=== PATIENT | female | born 1955 | race Caucasian/White ===

== ENCOUNTER → 2017-09-29 | Outpatient (CLI) | payer OTHER ==
--- NOTE | 2017-09-29 13:45 | US ---
EXAMINATION TYPE: US thyroid st tissue head/neck DATE OF EXAM: 09/29/2017 COMPARISON: 2010 CLINICAL HISTORY: E04.9 NONTOXIC GOITER. GLAND SIZE: Right Lobe: 5.0x1.8x1.8 cm Overall Parenchyma: heterogenous Left Lobe: 5.1x2.7x2.3 cm Overall Parenchyma: heterogeneous Isthmus Thickness: 0.2 cm NODULES RIGHT: # of nodules measured on right: 1 1. 0.7 X 1.0 x 0.4 cm echogenic solid nodule at the lower pole with well-defined margins; . This n odule is wider than tall and shows intranodular vascularity. Prior size: 0.6 x 0.4 x 0.4 cm LEFT: # of nodules measured on left: 3 1. 2.3 X 3.1 x 1.6 cm echogenic solid nodule at the lower pole with well-defined margins; . This n odule is wider than tall and shows intranodular vascularity. Prior size: 2.6 x 1.4 x 1.8 cm 2. 1.3 X 1.3 x 1.3 cm echogenic nodule at the medial pole with well-defined margins; . This nodule is wider than tall and shows intranodular vascularity. Prior size: 0.7 x 1.3 x 1.2 cm 3. 1.8 X 1.5 x 1.3 cm echogenic solid nodule at the mid pole with well-defined margins; . This nodu le is wider than tall and shows intranodular vascularity. Prior size: 1.4 x 1.4 x 0.7 cm ISTHMUS: # of nodules measured in the isthmus: 1 Bilateral neck scanned, no evidence of lymphadenopathy. Heterogeneous normal-sized thyroid with scattered nodules redemonstrated. No new nodules are evident. IMPRESSION: Overall stable findings as detailed above.
--- NOTE | 2017-09-29 14:17 | BD ---
EXAMINATION TYPE: Axial Bone Density DATE OF EXAM: 09/29/2017 COMPARISON: DEXA bone scan November 03, 2009 CLINICAL HISTORY: Postmenopausal female Height: 5 foot 8 Weight: 228 FRAX RISK QUESTIONS: Alcohol (3 or more units per day): no Family History (Parent hip fracture): no Glucocorticoids (More than 3mos): no (Ex: prednisone, prednisolone, methylprednisolone, dexamethasone, and hydrocortisone). History of Fracture in Adulthood: yes Secondary Osteoporosis: 1. Type 1 Diabetes: yes 2. Hyperthyroidism: no 3. Menopause before 45: yes 4. Malnutrition: no 5. Chronic liver disease: no Rheumatoid Arthritis: no Current Tobacco Use: yes RISK FACTORS HISTORY OF: Family History of Osteoporosis: yes Diet low in dairy products/other sources of calcium: no Postmenopausal woman: age 45 Take estrogen and/or progesterone medications: no Lost more than 2 inches in height since high school: no Frequent falls: yes MEDICATIONS: diabetic meds, Additional History: EXAM MEASUREMENTS: Bone mineral densitometry was performed using the [employer]. Bone mineral density as measured about the Lumbar spine is: ----- L1-L4(G/cm2): 1.246 T Score Values are as follows: ----- L2: 0.5 ----- L3: 0.7 ----- L4: -0.6 ----- L1-L4: 0.6 Bone mineral density has: increased 13.0 % since study of: 11.03.2009 Bone mineral density about the R hip (g/cm2): 0.863 Bone mineral density about the L hip (g/cm2): 0.794 T Score values are as follows: -----R Neck: -1.3 -----L Neck: -1.8 -----R Total: -1.0 -----L Total: -1.4 Bone mineral density has: decreased -3.8 % since study of: 11.03.2009 IMPRESSION: Osteopenia (T Score between -2.5 and -1) remains present femoral neck level in both hips. There is slightly increased risk of fracture and the patient may be considered for treatment. Re-Screen 2-5 years. NOTE: T-SCORE=SD OF THE YOUNG ADULT MEAN.
== END | disposition home or self-care (01) ==
LOC: RADMAMWWP 11:55
PROVIDERS: ATTEND Family Medicine
DX: M85.852 Other specified disorders of bone density and structure, left thigh (principal); M85.851 Other specified disorders of bone density and structure, right thigh; E04.2 Nontoxic multinodular goiter
CPT/HCPCS: 76536; 77080

== ENCOUNTER → 2017-10-10 | Outpatient (CLI) | payer OTHER ==
--- NOTE | 2017-10-10 16:12 | US ---
EXAMINATION TYPE: US renals and bladder DATE OF EXAM: 10/10/2017 COMPARISON: NONE CLINICAL HISTORY: 62-year-old female N18.9 chronic kidney disease. Chronic kidney disease FINDINGS: EXAM MEASUREMENTS: Right Kidney: 10.6 x 4.4 x 4.3 cm without hydronephrosis. There is a 1.2 cm lower pole cyst. Left Kidney: 11.6 x 6.1 x 4.4 cm without hydronephrosis. Senior Linux Administrator notes:Technical limitations due to large amount of overlying bowel content Bladder: appears wnl Bilateral Jets seen: yes IMPRESSION: 1. No hydronephrosis. 2. A 1.2 cm lower pole cyst on the right.
== END | disposition home or self-care (01) ==
LOC: RADUSWWP 13:34
PROVIDERS: ATTEND Internal Medicine
DX: N28.1 Cyst of kidney, acquired (principal); N18.9 Chronic kidney disease, unspecified
CPT/HCPCS: 76770

== ENCOUNTER → 2019-08-02 | Outpatient (CLI) | payer OTHER ==
--- NOTE | 2019-08-02 13:23 | US ---
EXAMINATION TYPE: US pelvic complete DATE OF EXAM: 08/02/2019 COMPARISON: CT CLINICAL HISTORY: N92.0 Excessive and frequent menstruation with reg. Pt states vaginal spotting x fe w months/ pt states LMP age 45 TECHNIQUE: Transabdominal (TA). Transabdominal sonographic images of the pelvis were acquired. Date of LMP: age 45 EXAM MEASUREMENTS: Uterus: 8.1 x 4.1 x 4.7 cm Endometrial Stripe: 1.2 cm Right Ovary: 2.6 x 2.0 x 2.3 cm Left Ovary: 2.9 x 1.6 x 2.4 cm 1. Uterus: Anteverted Appeared wnl 2. Endometrium: Thickened for postmenopausal female. 3. Right Ovary: Appeared wnl 4. Left Ovary: Appeared wnl 5. Bilateral Adnexa: wnl 6. Posterior cul-de-sac: wnl IMPRESSION: Endometrial thickening and abnormal for a posterior portal female measuring 1.2 cm. Furth er evaluation with sonohysterogram or direct visualization is recommended.
== END | disposition home or self-care (01) ==
LOC: RADUSWWP 12:40
PROVIDERS: ATTEND Family Medicine
DX: R93.89 Abnormal findings on diagnostic imaging of other specified body structures (principal)
CPT/HCPCS: 76856

== ENCOUNTER 2021-10-22 23:35 | Inpatient (IN) | payer OTHER ==
--- NOTE | 2021-10-23 01:25 | CT ---
EXAMINATION TYPE: CT brain wo con for TPA DATE OF EXAM: 10/23/2021 COMPARISON: None HISTORY: right sided weakness CT DLP: 1137.3 mGycm Automated exposure control for dose reduction was used. Ventricles have normal size. There is no mass effect or midline shift. No sign of intracranial hemorr genie. There is a extra-axial calcified mass at the right frontal convexity measuring 2.3 cm and consi stent with a large meningioma. The skull base is intact. There is normal aeration of the mastoid sinu ses. IMPRESSION: Large right frontal calcified meningioma. No acute intracranial abnormality.
--- NOTE | 2021-10-23 01:32 | XR ---
EXAMINATION TYPE: XR chest 2V DATE OF EXAM: 10/23/2021 COMPARISON: NONE HISTORY: Weakness and pain TECHNIQUE: 2 views FINDINGS: Heart is normal. Lungs are clear of infiltrate. No heart failure. There are no hilar masses . Bony thorax is intact. There are chest leads. IMPRESSION: Normal chest.
[2021-10-23 01:34] LABS: Albumin 4.5 g/dL (3.5-5.0); Calcium 9.7 mg/dL (8.4-10.2); Potassium 3.6 mmol/L (3.5-5.1); Total Bilirubin 0.4 mg/dL (0.2-1.3); Total Protein 8.1 g/dL (6.3-8.2)
[2021-10-23] MEDS ORDERED: DEXTROSE 50% SYRINGE 50 ML IVP STA (01:42)
[2021-10-23 01:50] LABS: INR 0.9 (<1.2); Prothrombin Time 10.4 sec (9.0-12.0)
[2021-10-23 01:52] LABS: Basophils # (A) 0.1 k/uL (0-0.2); Basophils % (A) 1 %; Eosinophils # (A) 0.2 k/uL (0-0.7); Eosinophils % (A) 2 %; HCT 47.4 % (34.0-46.0); HGB 15.5 gm/dL (11.4-16.0); Lymphocytes # (A) 3.1 k/uL (1.0-4.8); Lymphocytes % (A) 23 %; MCH 27.8 pg (25.0-35.0); MCHC 32.8 g/dL (31.0-37.0); Monocytes # (A) 0.7 k/uL (0-1.0); Monocytes % (A) 5 %; Neutrophils # (A) 9.2 k/uL (1.3-7.7); Neutrophils % (A) 68 %; Platelet Count 801 k/uL (150-450); RBC 5.57 m/uL (3.80-5.40); RDW 13.2 % (11.5-15.5); WBC 13.5 k/uL (3.8-10.6)
[2021-10-23 02:02] LABS: Glucose,Whole Blood 54 mg/dL (75-99)
[2021-10-23 02:39] LABS: Glucose,Whole Blood 67 mg/dL (75-99)
[2021-10-23 03:39] LABS: Appearance,Urine Clear (Clear); Bacteria,Urine Rare /hpf; Bilirubin,Urine Negative (Negative); Blood,Urine Negative (Negative); Color,Urine Colorless; Glucose,Urine (UA) Negative (Negative); Ketones,Urine Negative (Negative); Leukocyte Esterase,Urine Trace (Negative); Nitrite,Urine Negative (Negative); Protein,Urine Negative (Negative); RBC,Urine <1 /hpf (0-5); Specific Gravity,Urine 1.006 (1.001-1.035); Squamous Epithelial Cell,Urine 2 /hpf (0-4); Urobilinogen,Urine <2.0 mg/dL (<2.0); WBC,Urine 1 /hpf (0-5)
--- NOTE | 2021-10-23 03:55 | ED ---
Neuro HPI - General Chief Complaint: Neuro Symptoms/Deficit Stated Complaint: Stroke-like Symptoms Time Seen by Provider: 10/23/21 00:08 Source: patient Mode of arrival: ambulatory Limitations: no limitations - History of Present Illness Is the patient presenting with stroke symptoms?: Yes Last Known Well Date: 10/20/21 Last Known Well Time: 08:00 -: days(s) Initial Comments: Please note this is a redictation of this chart the original appears to have been lost in the system. This patient is a 66-year-old woman who presents to have evaluation of right- sided weakness that has been going on now into the third day. The patient states that it feels like her right side is weak and tingly. She feels as if the fingers on her right side are also swollen. It had come on gradually to 3 days ago and has persisted so she presents to have evaluation now. Patient denies head injury or headache. She has not noted change in vision. She states she does feel her speech is not right. She states she is sometimes having problems coming up with the word that she is looking for. Location: speech, right arm, right leg History of same: No Place: home Severity: moderate Quality: weak, tingling, constant Improves With: none Worsens With: none On Anticoagulants: No Context: sudden onset Associated Symptoms: denies other symptoms Treatments Prior to Arrival: none - Related Data Home Medications: Home Medications Medication Instructions Recorded Confirmed Cyclobenzaprine [Flexeril] 10 mg PO BID 10/23/21 10/23/21 Ergocalciferol [Vitamin D2 (1250 1,250 mcg PO TH 10/23/21 10/23/21 Mcg = 69941 Iu)] Furosemide [Lasix] 40 mg PO DAILY 10/23/21 10/23/21 HYDROcodone/APAP 10-325MG [Waterfall 1 tab PO BID 10/23/21 10/23/21 10-325] Insulin Aspart [NovoLOG Flexpen] See Protocol SQ AC-TID 10/23/21 10/23/21 Insulin Glargine,Hum.rec.anlog 88 unit SQ W/SUPPER 10/23/21 10/23/21 [Lantus Solostar Pen] Loratadine [Claritin] 10 mg PO HS 10/23/21 10/23/21 Montelukast [Singulair] 10 mg PO HS 10/23/21 10/23/21 Omeprazole 40 mg PO HS 10/23/21 10/23/21 Ondansetron [Zofran] 4 mg PO Q8H PRN 10/23/21 10/23/21 QUEtiapine [SEROquel] 100 mg PO HS 10/23/21 10/23/21 Rosuvastatin [Crestor] 10 mg PO HS 10/23/21 10/23/21 Triamterene-Hctz 37.5-25Mg 1 cap PO DAILY 10/23/21 10/23/21 [Dyazide 37.5-25 Capsule] amLODIPine [Norvasc] 5 mg PO HS 10/23/21 10/23/21 atenoloL [Tenormin] 25 mg PO HS 10/23/21 10/23/21 dilTIAZem HCL 60 mg PO HS 10/23/21 10/23/21 hydrALAZINE HCL [Apresoline] 25 mg PO HS 10/23/21 10/23/21 hydrALAZINE HCL [Apresoline] 50 mg PO DAILY 10/23/21 10/23/21 hydrOXYzine pamoate [hydrOXYzine 100 mg PO DAILY 10/23/21 10/23/21 PAMOATE] Allergies/Adverse Reactions: Allergies Allergy/AdvReac Type Severity Reaction Status Date / Time No Known Allergies Allergy Verified 10/23/21 06:59 Review of Systems ROS Statement: Those systems with pertinent positive or pertinent negative responses have been documented in the HPI. ROS Other: All systems not noted in ROS Statement are negative. Constitutional: Denies: fever, chills, weakness Eyes: Denies: eye pain, vision change ENT: Denies: ear pain, hearing loss Respiratory: Denies: cough, dyspnea Cardiovascular: Denies: chest pain, palpitations, orthopnea, syncope Gastrointestinal: Denies: abdominal pain, vomiting, diarrhea Genitourinary: Denies: dysuria, hematuria Musculoskeletal: Denies: back pain Skin: Denies: rash Neurological: Reports: as per HPI, weakness, numbness. Denies: headache Hematological/Lymphatic: Denies: easy bleeding General Exam Limitations: no limitations General appearance: alert, in no apparent distress Head exam: Present: atraumatic, normocephalic Eye exam: Present: normal appearance, PERRL, EOMI. Absent: scleral icterus, conjunctival injection ENT exam: Present: mucous membranes dry Neck exam: Present: normal inspection Respiratory exam: Present: normal lung sounds bilaterally. Absent: respiratory distress, wheezes, rales, rhonchi, stridor Cardiovascular Exam: Present: regular rate, normal rhythm, normal heart sounds. Absent: systolic murmur, diastolic murmur, rubs, gallop GI/Abdominal exam: Present: soft. Absent: distended, tenderness, guarding, rebound, rigid, mass Extremities exam: Present: normal inspection, full ROM, normal capillary refill. Absent: pedal edema, calf tenderness Back exam: Present: normal inspection Neurological exam: Present: alert, oriented X3, CN II-XII intact, other. Absent: motor sensory deficit Expanded Patient oriented to: Present: person, place, time Speech: Present: anomia Cranial nerves: EOM's Intact: Normal, Tongue Deviation: Normal, Facial Sensation: Normal Cerebellar function: Finger to Nose: Normal Sensory exam: Upper Extremity Light Touch: Normal, Lower Extremity Light Touch: Normal Motor strength exam: RUE: 5, LUE: 5, RLE: 4, LLE: 5 Eye Response: (4) open spontaneously Motor Response: (6) obeys commands Verbal Response: (5) oriented Skin exam: Present: warm, dry, intact, normal color. Absent: rash Stroke MDM - Lab Data Result diagrams: 10/23/21 01:04 10/23/21 01:04 Lab Results 10/23/21 10/23/21 10/23/21 Range/Units 01:04 01:04 01:04 WBC 13.5 H (3.8-10.6) k/uL RBC 5.57 H (3.80-5.40) m/uL Hgb 15.5 (11.4-16.0) gm/dL Hct 47.4 H (34.0-46.0) % MCV 85.0 (80.0-100.0) fL MCH 27.8 (25.0-35.0) pg MCHC 32.8 (31.0-37.0) g/dL RDW 13.2 (11.5-15.5) % Plt Count 801 H (150-450) k/uL MPV 7.0 Neutrophils % 68 % Lymphocytes % 23 % Monocytes % 5 % Eosinophils % 2 % Basophils % 1 % Neutrophils # 9.2 H (1.3-7.7) k/uL Lymphocytes # 3.1 (1.0-4.8) k/uL Monocytes # 0.7 (0-1.0) k/uL Eosinophils # 0.2 (0-0.7) k/uL Basophils # 0.1 (0-0.2) k/uL PT 10.4 (9.0-12.0) sec INR 0.9 (<1.2) APTT 27.0 (22.0-30.0) sec D-Dimer 0.33 (<0.60) mg/L FEU Sodium 140 (137-145) mmol/L Potassium 3.6 (3.5-5.1) mmol/L Chloride 103 (98-107) mmol/L Carbon Dioxide 28 (22-30) mmol/L Anion Gap 9 mmol/L BUN 21 H (7-17) mg/dL Creatinine 1.63 H (0.52-1.04) mg/dL Est GFR (CKD-EPI)AfAm 38 (>60 ml/min/1.73 sqM) Est GFR (CKD-EPI)NonAf 33 (>60 ml/min/1.73 sqM) Glucose 44 L* (74-99) mg/dL POC Glucose (mg/dL) (75-99) mg/dL POC Glu General [employer] Yard ID Calcium 9.7 (8.4-10.2) mg/dL Total Bilirubin 0.4 (0.2-1.3) mg/dL AST 23 (14-36) U/L ALT 15 (4-34) U/L Alkaline Phosphatase 133 H (38-126) U/L Troponin I (0.000-0.034) ng/mL Total Protein 8.1 (6.3-8.2) g/dL Albumin 4.5 (3.5-5.0) g/dL Urine Color Urine Appearance (Clear) Urine pH (5.0-8.0) Ur Specific [place] (1.001-1.035) Urine Protein (Negative) Urine Glucose (UA) (Negative) Urine Ketones (Negative) Urine Blood (Negative) Urine Nitrite (Negative) Urine Bilirubin (Negative) Urine Urobilinogen (<2.0) mg/dL Ur Leukocyte Esterase (Negative) Urine RBC (0-5) /hpf Urine WBC (0-5) /hpf Ur Squamous Epith Cells (0-4) /hpf Urine Bacteria (None) /hpf 10/23/21 10/23/21 10/23/21 Range/Units 01:04 02:00 02:25 WBC (3.8-10.6) k/uL RBC (3.80-5.40) m/uL Hgb (11.4-16.0) gm/dL Hct (34.0-46.0) % MCV (80.0-100.0) fL MCH (25.0-35.0) pg MCHC (31.0-37.0) g/dL RDW (11.5-15.5) % Plt Count (150-450) k/uL MPV Neutrophils % % Lymphocytes % % Monocytes % % Eosinophils % % Basophils % % Neutrophils # (1.3-7.7) k/uL Lymphocytes # (1.0-4.8) k/uL Monocytes # (0-1.0) k/uL Eosinophils # (0-0.7) k/uL Basophils # (0-0.2) k/uL PT (9.0-12.0) sec INR (<1.2) APTT (22.0-30.0) sec D-Dimer (<0.60) mg/L FEU Sodium (137-145) mmol/L Potassium (3.5-5.1) mmol/L Chloride (98-107) mmol/L Carbon Dioxide (22-30) mmol/L Anion Gap mmol/L BUN (7-17) mg/dL Creatinine (0.52-1.04) mg/dL Est GFR (CKD-EPI)AfAm (>60 ml/min/1.73 sqM) Est GFR (CKD-EPI)NonAf (>60 ml/min/1.73 sqM) Glucose (74-99) mg/dL POC Glucose (mg/dL) 54 L (75-99) mg/dL POC Glu General [employer] ID [place] Calcium (8.4-10.2) mg/dL Total Bilirubin (0.2-1.3) mg/dL AST (14-36) U/L ALT (4-34) U/L Alkaline Phosphatase (38-126) U/L Troponin I <0.012 (0.000-0.034) ng/mL Total Protein (6.3-8.2) g/dL Albumin (3.5-5.0) g/dL Urine Color Colorless Urine Appearance Clear (Clear) Urine pH 6.0 (5.0-8.0) Ur Specific [place] 1.006 (1.001-1.035) Urine Protein Negative (Negative) Urine Glucose (UA) Negative (Negative) Urine Ketones Negative (Negative) Urine Blood Negative (Negative) Urine Nitrite Negative (Negative) Urine Bilirubin Negative (Negative) Urine Urobilinogen <2.0 (<2.0) mg/dL Ur Leukocyte Esterase Trace H (Negative) Urine RBC <1 (0-5) /hpf Urine WBC 1 (0-5) /hpf Ur Squamous Epith Cells 2 (0-4) /hpf Urine Bacteria Rare H (None) /hpf 10/23/21 Range/Units 02:37 WBC (3.8-10.6) k/uL RBC (3.80-5.40) m/uL Hgb (11.4-16.0) gm/dL Hct (34.0-46.0) % MCV (80.0-100.0) fL MCH (25.0-35.0) pg MCHC (31.0-37.0) g/dL RDW (11.5-15.5) % Plt Count (150-450) k/uL MPV Neutrophils % % Lymphocytes % % Monocytes % % Eosinophils % % Basophils % % Neutrophils # (1.3-7.7) k/uL Lymphocytes # (1.0-4.8) k/uL Monocytes # (0-1.0) k/uL Eosinophils # (0-0.7) k/uL Basophils # (0-0.2) k/uL PT (9.0-12.0) sec INR (<1.2) APTT (22.0-30.0) sec D-Dimer (<0.60) mg/L FEU Sodium (137-145) mmol/L Potassium (3.5-5.1) mmol/L Chloride (98-107) mmol/L Carbon Dioxide (22-30) mmol/L Anion Gap mmol/L BUN (7-17) mg/dL Creatinine (0.52-1.04) mg/dL Est GFR (CKD-EPI)AfAm (>60 ml/min/1.73 sqM) Est GFR (CKD-EPI)NonAf (>60 ml/min/1.73 sqM) Glucose (74-99) mg/dL POC Glucose (mg/dL) 67 L (75-99) mg/dL POC Glu General [employer] Yard ID [place], Andres Calcium (8.4-10.2) mg/dL Total Bilirubin (0.2-1.3) mg/dL AST (14-36) U/L ALT (4-34) U/L Alkaline Phosphatase (38-126) U/L Troponin I (0.000-0.034) ng/mL Total Protein (6.3-8.2) g/dL Albumin (3.5-5.0) g/dL Urine Color Urine Appearance (Clear) Urine pH (5.0-8.0) Ur Specific [place] (1.001-1.035) Urine Protein (Negative) Urine Glucose (UA) (Negative) Urine Ketones (Negative) Urine Blood (Negative) Urine Nitrite (Negative) Urine Bilirubin (Negative) Urine Urobilinogen (<2.0) mg/dL Ur Leukocyte Esterase (Negative) Urine RBC (0-5) /hpf Urine WBC (0-5) /hpf Ur Squamous Epith Cells (0-4) /hpf Urine Bacteria (None) /hpf - Medical Decision Making This patient is 66-year-old woman going on 3 days now of right sided weakness and numbness as well as some difficulty with word finding and her speech. On the exam she does have strength throughout all 4 extremities however there is noticeable difference the right arm has some very subtle weakness compared with the left. The right leg is more noticeably weak than the left. The patient is outside of the window for TPA administration The initial workup does not reveal evidence of acute stroke, but in discussing the findings with patient I feel is important she have neurologic consultation. She does agree to stay for this. Past Medical History Past Medical History: Diabetes Mellitus, Hypertension Additional Past Medical History / Comment(s): kidney disease History of Any Multi-Drug Resistant Organisms: None Reported Past Surgical History: Appendectomy, Cholecystectomy, Orthopedic Surgery, Tubal Ligation Additional Past Surgical History / Comment(s): eyes, Past Psychological History: No Psychological Hx Reported Smoking Status: Current every day smoker Past Alcohol Use History: None Reported Past Drug Use History: None Reported - Past Family History Mother Additional Family Medical History / Comment(s): Ger's Father Additional Family Medical History / Comment(s): Still alive, cancer (prostate) Course Vital Signs 10/22/21 10/23/21 10/23/21 23:38 00:58 02:25 Temperature 97.5 F L Pulse Rate 66 63 77 Pulse Rate [ Integration Lead ] Respiratory 18 16 16 Rate Blood Pressure 143/69 145/63 133/78 Blood Pressure [Left Arm] O2 Sat by Pulse 100 98 100 Oximetry 10/23/21 10/23/21 10/23/21 03:52 05:13 11:00 Temperature Pulse Rate 65 71 75 Pulse Rate [ Integration Lead ] Respiratory 18 18 18 Rate Blood Pressure 133/70 136/78 140/82 Blood Pressure [Left Arm] O2 Sat by Pulse 100 99 98 Oximetry 10/23/21 12:00 Temperature Pulse Rate Pulse Rate [ 79 Integration Lead ] Respiratory 20 Rate Blood Pressure Blood Pressure 170/87 [Left Arm] O2 Sat by Pulse 100 Oximetry Disposition Clinical Impression: CVA (cerebral vascular accident) Disposition: Left Against Medical Advice Condition: Fair Is patient prescribed a controlled substance at d/c from ED?: No
[2021-10-23 05:29] LABS: Glucose,Whole Blood 154 mg/dL (75-99)
[2021-10-23] MEDS ORDERED: NICOTINE 14MG/24HR PATCH TRANSDERM STA (06:47)
[2021-10-23] MEDS ORDERED: NICOTINE 21MG/24HR PATCH TRANSDERM STA (07:20)
[2021-10-23 08:45] LABS: Glucose,Whole Blood 121 mg/dL (75-99)
--- NOTE | 2021-10-23 08:48 | P.HPIM ---
History of Present Illness This is a pleasant 66 years old female with past medical history of hypertension, diabetes mellitus and cigarette smoker. Patient states she has chronic kidney disease as well Presents because of right-sided weakness and numbness for the last 2-3 days. Patient states that she has recently diagnosed with cough at about 2-3 weeks ago with cough sore throat and diarrhea which is improved now. However for the last 2-3 she started complaining of from numbness in her feet and tongue and that site of the loop associated with weakness more of the lower extremities. She notices her hand also week and she's been dropping.. Associated with little headache but no blurred vision. Her told her that her sound looks of. She denies chest pain or dyspnea. She has little coughing. She has no diarrhea actually she is constipated area no abdominal pain or dysuria. No urgency. She is hemodynamically stable. Labs showing mild leukocytosis at 13.5. INR is 0.9, d-dimer is -0.3. Creatinine elevated at 1.6. Also she was hyperglycemic on admission at 44, currently last blood glucose was 154 Urine analysis is negative for infection. CT of the brain, large right frontal calcified meningioma. No acute intracranial abnormality Chest x-ray: Normal chest Emergency room patient was started on aspirin 325 mg She states at home she takes 88 units of Lantus and insulin sliding scale for example yesterday she took 28 units with this morning meal at health 14 units with the dining time. She has to with 2 meals and she was also 10 units for the snack in the evening. Last hemoglobin was 5+% as per patient She smokes about less than 2 packs per day and she was counseled to quit. She agrees to the nicotine patch. She denies alcohol or illicit drugs. Review of Systems CONSTITUTIONAL: No fever, no malaise, no fatigue. HEENT: No recent visual problems or hearing problems. Denied any sore throat. CARDIOVASCULAR: No orthopnea, PND, no palpitations, no syncope. PULMONARY: No shortness of breath, no cough, no hemoptysis. GASTROINTESTINAL: No diarrhea, no nausea, no vomiting, no abdominal pain. Normoactive bowel sounds. -NEUROLOGICAL: As above HEMATOLOGICAL: Denies any bleeding or petechiae. GENITOURINARY: Denies any burning micturition, frequency, or urgency. MUSCULOSKELETAL/RHEUMATOLOGICAL: Denies any joint pain, swelling, or any muscle pain. ENDOCRINE: Denies any polyuria or polydipsia. Past Medical History Past Medical History: Diabetes Mellitus, Hypertension Additional Past Medical History / Comment(s): kidney disease History of Any Multi-Drug Resistant Organisms: None Reported Past Surgical History: Appendectomy, Cholecystectomy, Orthopedic Surgery, Tubal Ligation Additional Past Surgical History / Comment(s): eyes, Past Psychological History: No Psychological Hx Reported Smoking Status: Current every day smoker Past Alcohol Use History: None Reported Past Drug Use History: None Reported Medications and Allergies Home Medications Medication Instructions Recorded Confirmed Type Cyclobenzaprine [Flexeril] 10 mg PO BID 10/23/21 10/23/21 History Ergocalciferol [Vitamin D2 (1250 1,250 mcg PO TH 10/23/21 10/23/21 History Mcg = 84989 Iu)] Furosemide [Lasix] 40 mg PO DAILY 10/23/21 10/23/21 History HYDROcodone/APAP 10-325MG [[place] 1 tab PO BID 10/23/21 10/23/21 History 10-325] Insulin Aspart [NovoLOG Flexpen] See Protocol SQ AC-TID 10/23/21 10/23/21 History Insulin Glargine,Hum.rec.anlog 88 unit SQ W/SUPPER 10/23/21 10/23/21 History [Lantus Solostar Pen] Loratadine [Claritin] 10 mg PO HS 10/23/21 10/23/21 History Montelukast [Singulair] 10 mg PO HS 10/23/21 10/23/21 History Omeprazole 40 mg PO HS 10/23/21 10/23/21 History Ondansetron [Zofran] 4 mg PO Q8H PRN 10/23/21 10/23/21 History QUEtiapine [SEROquel] 100 mg PO HS 10/23/21 10/23/21 History Rosuvastatin [Crestor] 10 mg PO HS 10/23/21 10/23/21 History Triamterene-Hctz 37.5-25Mg 1 cap PO DAILY 10/23/21 10/23/21 History [Dyazide 37.5-25 Capsule] amLODIPine [Norvasc] 5 mg PO HS 10/23/21 10/23/21 History atenoloL [Tenormin] 25 mg PO HS 10/23/21 10/23/21 History dilTIAZem HCL 60 mg PO HS 10/23/21 10/23/21 History hydrALAZINE HCL [Apresoline] 25 mg PO HS 10/23/21 10/23/21 History hydrALAZINE HCL [Apresoline] 50 mg PO DAILY 10/23/21 10/23/21 History hydrOXYzine pamoate [hydrOXYzine 100 mg PO DAILY 10/23/21 10/23/21 History PAMOATE] Allergies Allergy/AdvReac Type Severity Reaction Status Date / Time No Known Allergies Allergy Verified 10/23/21 06:59 Physical Exam Vitals: Vital Signs Temp Pulse Resp BP Pulse Ox 10/23/21 05:13 71 18 136/78 99 10/23/21 03:52 65 18 133/70 100 10/23/21 02:25 77 16 133/78 100 10/23/21 00:58 63 16 145/63 98 10/22/21 23:38 97.5 F L 66 18 143/69 100 Intake and Output 10/22/21 10/23/21 10/23/21 22:59 06:59 14:59 Other: Weight 108.862 kg -GENERAL: The patient is alert and oriented x3, not in any acute distress. Obese HEENT: Pupils are round and equally reacting to light. EOMI. No scleral icterus. No conjunctival pallor. Normocephalic, atraumatic. No pharyngeal erythema. No thyromegaly. CARDIOVASCULAR: S1 and S2 present. No murmurs, rubs, or gallops. PULMONARY: Chest is clear to auscultation, no wheezing or crackles. ABDOMEN: Soft, nontender, nondistended, normoactive bowel sounds. No palpable organomegaly. MUSCULOSKELETAL: No joint swelling or deformity. EXTREMITIES: No cyanosis, clubbing, or pedal edema. -NEUROLOGICAL: Cranial nerves are grossly intact. Some numbness in the right lip and tip of the tongue. Right sided weakness, lower> upper extremity. Patient she has hard time lifting her leg over the bed. But she can bend her knee. No foot drop. Meningeal signs are absent SKIN: No rashes. No petechiae Results CBC & Chem 7: 10/23/21 01:04 06/03/22 01:04 Labs: Abnormal Lab Results - Last 24 Hours (Table) 10/23/21 10/23/21 10/23/21 Range/Units 01:04 01:04 02:00 WBC 13.5 H (3.8-10.6) k/uL RBC 5.57 H (3.80-5.40) m/uL Hct 47.4 H (34.0-46.0) % Plt Count 801 H (150-450) k/uL Neutrophils # 9.2 H (1.3-7.7) k/uL BUN 21 H (7-17) mg/dL Creatinine 1.63 H (0.52-1.04) mg/dL Glucose 44 L* (74-99) mg/dL POC Glucose (mg/dL) 54 L (75-99) mg/dL Alkaline Phosphatase 133 H (38-126) U/L Ur Leukocyte Esterase (Negative) Urine Bacteria (None) /hpf 10/23/21 10/23/21 10/23/21 Range/Units 02:25 02:37 05:27 WBC (3.8-10.6) k/uL RBC (3.80-5.40) m/uL Hct (34.0-46.0) % Plt Count (150-450) k/uL Neutrophils # (1.3-7.7) k/uL BUN (7-17) mg/dL Creatinine (0.52-1.04) mg/dL Glucose (74-99) mg/dL POC Glucose (mg/dL) 67 L 154 H (75-99) mg/dL Alkaline Phosphatase (38-126) U/L Ur Leukocyte Esterase Trace H (Negative) Urine Bacteria Rare H (None) /hpf Assessment and Plan Assessment: Acute stroke with right hemiparesis large right frontal calcified meningioma Diabetes mellitus with hyperglycemia on admission Chronic kidney disease stage III Hypertension Nicotine dependence Obesity with BMI of 36.5 Plan: This is a pleasant 66 years old female who presents with stroke and right hemiparesis. Also hypoglycemia. Neuro check Continue with aspirin Neurology consult Start patient on D5 normal saline Hold insulin and continue with insulin sliding scale. check hemoglobin A1c Urine drug screen Resume atenolol, Norvasc, triamterene-hydrochlorothiazide. while Hold Cardizem and hydralazine, Lasix. Keep monitor and blood pressure Labs and medication were reviewed.. Continue same treatment. Continue with symptomatic treatment. Resume home medication. Monitor lytes and vitals. DVT and GI prophylaxis. Further recommendations depends on the clinical course of the patient DVT prophylaxis: Subcutaneous heparin GI Prophylaxis: Pepcid PT/OT: Pending Swallow evaluation Prognosis is guarded
[2021-10-23] MEDS ORDERED: TRIAMTERENE-HCTZ 37.5-25MG 1 EACH CAP PO SCH (09:00)
[2021-10-23] MEDS ORDERED: FAMOTIDINE 20 MG TAB PO SCH (09:00)
[2021-10-23] MEDS: DEXTROSE 5%-0.9% NACL 1,000 ML IV SCH (09:04)
--- NOTE | 2021-10-23 11:07 | P.CNNES ---
History of Present Illness Consult date: 10/23/21 Requesting physician: Alex Bates Reason for Consult: Right sided weakness, possible stroke History of Present Illness: Patient is a 66-year-old right-handed female came to the hospital yesterday at 11:38 PM for right-sided weakness, numbness and difficulty with walking. Patient states that she has history of diabetes type 1 for 25 years, with diabetic neuropathy. She usually walks with a walker for the last 10 years. About 3 days ago she noticed that she has much more difficulty with walking, as her right foot would drag, would not like to move forward and would turn in. Along with that she noticed tingling of the right hand with numbness, tightness in the fingers. Also noticed numbness of the tip of the tongue, and right half of the upper and lower lips. She also had developed slurred speech, as usually she speaks very crisp. She also felt extremely tired. Patient felt that she will get better, and symptoms would go away, therefore did not seek medical attention. Patient noticed difficulty getting around with imbalance. She felt that she would fall. As all her symptoms continued to get worse, patient's brought her to the hospital. Patient's vital signs on arrival blood pressure 143/69, pulse is [address] head showed large right frontal calcified meningioma measuring 23 mm. No acute process. I personally reviewed CT head, agree with the findings. Chest x-ray normal. Blood test shows WBC 13.5 hemoglobin 15.5, platelets 801. PT/PTT normal, electrolytes are normal, BUN 21 creatinine 1.63. Hepatic panel is normal. Troponin negative. UA negative. Patient's last hemoglobin A1c 9.7 on 02/14/2017. Patient states she has history of diabetes type 1 for last 25 years. She has stage III kidney disease. Patient smokes 2 packs per day for last 20 years. Prior to that she has smoked 1 pack per day for another 30 years previously. She still smokes. Denies any alcohol use. Patient does not take any antiplatelet medication at home. Her did give her aspirin 81 mg last night at 11:15 PM. Patient has macular degeneration with Tracts. Home medications include insulin, Crestor 10 mg Seroquel 100 g at bedtime hydrocodone 10 twice a day Flexeril 10 mg twice a day, besides other blood pressure medications as per chart. Patient states that she was exposed to Covid by her son about a month ago. Subsequently she lost taste sensation. She felt very sick last week with feeling hot and cold sensation. She also had diarrhea, all symptoms of Covid- 19, however she never got tested for it. Patient states that she has lost 15 pounds since she has been suffering with flulike symptoms. No previous history of strokes or TIA. Review of Systems All 14 point of review of system reviewed, remarkable except as mentioned in HPI. Past Medical History Past Medical History: Diabetes Mellitus, Hypertension Additional Past Medical History / Comment(s): kidney disease History of Any Multi-Drug Resistant Organisms: None Reported Past Surgical History: Appendectomy, Cholecystectomy, Orthopedic Surgery, Tubal Ligation Additional Past Surgical History / Comment(s): eyes, Past Psychological History: No Psychological Hx Reported Smoking Status: Current every day smoker Past Alcohol Use History: None Reported Past Drug Use History: None Reported Medications and Allergies Home Medications Medication Instructions Recorded Confirmed Type Cyclobenzaprine [Flexeril] 10 mg PO BID 10/23/21 10/23/21 History Ergocalciferol [Vitamin D2 (1250 1,250 mcg PO TH 10/23/21 10/23/21 History Mcg = 04163 Iu)] Furosemide [Lasix] 40 mg PO DAILY 10/23/21 10/23/21 History HYDROcodone/APAP 10-325MG [[place] 1 tab PO BID 10/23/21 10/23/21 History 10-325] Insulin Aspart [NovoLOG Flexpen] See Protocol SQ AC-TID 10/23/21 10/23/21 History Insulin Glargine,Hum.rec.anlog 88 unit SQ W/SUPPER 10/23/21 10/23/21 History [Lantus Solostar Pen] Loratadine [Claritin] 10 mg PO HS 10/23/21 10/23/21 History Montelukast [Singulair] 10 mg PO HS 10/23/21 10/23/21 History Omeprazole 40 mg PO HS 10/23/21 10/23/21 History Ondansetron [Zofran] 4 mg PO Q8H PRN 10/23/21 10/23/21 History QUEtiapine [SEROquel] 100 mg PO HS 10/23/21 10/23/21 History Rosuvastatin [Crestor] 10 mg PO HS 10/23/21 10/23/21 History Triamterene-Hctz 37.5-25Mg 1 cap PO DAILY 10/23/21 10/23/21 History [Dyazide 37.5-25 Capsule] amLODIPine [Norvasc] 5 mg PO HS 10/23/21 10/23/21 History atenoloL [Tenormin] 25 mg PO HS 10/23/21 10/23/21 History dilTIAZem HCL 60 mg PO HS 10/23/21 10/23/21 History hydrALAZINE HCL [Apresoline] 25 mg PO HS 10/23/21 10/23/21 History hydrALAZINE HCL [Apresoline] 50 mg PO DAILY 10/23/21 10/23/21 History hydrOXYzine pamoate [hydrOXYzine 100 mg PO DAILY 10/23/21 10/23/21 History PAMOATE] Allergies Allergy/AdvReac Type Severity Reaction Status Date / Time No Known Allergies Allergy Verified 10/23/21 06:59 Physical Examination - Vital Signs Vital Signs: Vital Signs Temp Pulse Resp BP Pulse Ox 10/23/21 05:13 71 18 136/78 99 10/23/21 03:52 65 18 133/70 100 10/23/21 02:25 77 16 133/78 100 10/23/21 00:58 63 16 145/63 98 10/22/21 23:38 97.5 F L 66 18 143/69 100 Intake and Output 10/22/21 10/23/21 10/23/21 22:59 06:59 14:59 Other: Weight 108.862 kg Patient is an elderly female, in no acute distress. Patient is alert awake oriented to time place and person. Speech is mildly dysarthric and language functions are normal. Patient can name and repeat very well. Attention, concentration and fund of knowledge is adequate. On cranial examination, pupils are equal, round and reacting to light, visual crooks are full on confrontation, extraocular muscles are intact with no nystagmus. Face is symmetric, tongue protrudes to the midline. Palatal elevation and sensation normal, hearing and shoulder shrug normal, facial sensation normal. Shoulder shrug normal. On muscle strength testing, there is right-sided pronation, in both arms gets tired, but the right arm more easily gets tired. Patient's muscle strength is normal in arms and legs distally and proximally. Deep tendon reflexes are diminished and plantars downgoing bilaterally. Sensory to touch is equal in the arms and legs, with no neglect on double simultaneous stimulation. She has some decreased in the right median nerve distribution. Cerebellar function showed no moderate to severe ataxia for [id number], and [id number] testing only on the right side. No ataxia on the left side. Tone and bulk of muscles normal. Gait not checked On general examination, there is no carotid bruit or murmur, S1-S2 audible. Abdomen is soft nontender. Bowel sounds present, no organomegaly. Chest is clear. Peripheral pulses are present. No edema. Results - Laboratory Findings CBC and BMP: 10/23/21 01:04 10/23/21 01:04 Abnormal Lab Findings: Abnormal Labs 10/23/21 10/23/21 10/23/21 01:04 01:04 02:00 WBC 13.5 H RBC 5.57 H Hct 47.4 H Plt Count 801 H Neutrophils # 9.2 H BUN 21 H Creatinine 1.63 H Glucose 44 L* POC Glucose (mg/dL) 54 L Alkaline Phosphatase 133 H Ur Leukocyte Esterase Urine Bacteria 10/23/21 10/23/21 10/23/21 02:25 02:37 05:27 WBC RBC Hct Plt Count Neutrophils # BUN Creatinine Glucose POC Glucose (mg/dL) 67 L 154 H Alkaline Phosphatase Ur Leukocyte Esterase Trace H Urine Bacteria Rare H 10/23/21 08:43 WBC RBC Hct Plt Count Neutrophils # BUN Creatinine Glucose POC Glucose (mg/dL) 121 H Alkaline Phosphatase Ur Leukocyte Esterase Urine Bacteria Assessment and Plan Assessment: * Probable acute to subacute ischemic stroke, with right-sided numbness and right hemiataxia. * Cerebral meningioma right frontal region. Likely asymptomatic, as all symptoms are on the ipsilateral side. * Diabetes * Hypertension * Hyperlipidemia * Chronic, heavy tobacco use * Stage III renal disease. Plan: * Patient will undergo workup for CVA. * MRI of the brain with and without contrast * MRA brain rule out intracranial stenosis. * Carotid Doppler to rule out stenosis * 2-D echo with bubble study * Start dual antiplatelet medication. After 21 days probably would be able to switch to a single agent. * Strongly recommend complete tobacco cessation. * Telemetry monitoring * Permissive hypertension for 24-48 hours. * DVT prophylaxis: Heparin subcu 5000 unit every 12 hours. * PT OT, speech therapy * Neurology will follow. Thank you for the consult. Time with Patient: Greater than 30
[2021-10-23] MEDS: ASPIRIN 325 MG TAB PO SCH (11:23)
[2021-10-23] MEDS: INSULIN ASPART (NovoLOG) 100 UNIT/ML VIAL SQ SCH ×3 (12:24→21:10)
[2021-10-23 12:26] LABS: Glucose,Whole Blood 179 mg/dL (75-99)
[2021-10-23] MEDS: CLOPIDOGREL 75 MG TAB PO SCH (12:28)
--- NOTE | 2021-10-23 12:52 | CA ---
Transthoracic Echo Report Name: Mamta Tripp Age: 66 Gender: F : 1955 Exam Date: 10/23/2021 11:21 Exam Location: [facility] Ht (in): 68 Wt (lb): 250 Ordering Physician: Frank Otero MD Attending/Referring Phys: Materials Planner Khushbu Blas RDCS Procedure CPT: Indications: CVA Cardiac Hx: Technical Quality: Technically difficult study Contrast 1: Lumason Total Dose (mL): 4 Contrast 2: Total Dose (mL): MEASUREMENTS (Male / Female) Normal Values 2D ECHO LV Diastolic Diameter PLAX 4.2 cm 4.2 - 5.9 / 3.9 - 5.3 cm LV Systolic Diameter PLAX 3.1 cm IVS Diastolic Thickness 1.4 cm 0.6 - 1.0 / 0.6 - 0.9 cm LVPW Diastolic Thickness 1.1 cm 0.6 - 1.0 / 0.6 - 0.9 cm LV Relative Wall Thickness 0.6 RV Internal Dim ED PLAX 2.4 cm LA Volume 55.8 cm??? 18 - 58 / 22 - 52 cm??? M-MODE Aortic Root Diameter MM 3.3 cm LA Systolic Diameter MM 4.3 cm LA Ao Ratio MM 1.3 AV Cusp Separation MM 1.7 cm DOPPLER AV Peak Velocity 118.0 cm/s AV Peak Gradient 5.6 mmHg LVOT Peak Velocity 105.0 cm/s LVOT Peak Gradient 4.4 mmHg MV Area PHT 3.0 cm??? Mitral E Point Velocity 95.5 cm/s Mitral A Point Velocity 127.1 cm/s Mitral E to A Ratio 0.8 MV Deceleration Time 252.3 ms MV E' Velocity 5.3 cm/s Mitral E to MV E' Ratio 18.0 FINDINGS Left Ventricle Moderately increased left ventricular wall thickness. Normal left ventricular systolic function with no obvious regional wall motion abnormalities. Left ventricular ejection fraction is estimated at 55- 60 %. Right Ventricle Normal right ventricular size and function. Right Atrium Right atrium not well visualized. Left Atrium Mildly increased left atrial volume. No evidence for an atrial septal defect. Could not perform agitated saline study due to test being technically difficult. Mitral Valve Mild mitral regurgitation. Aortic Valve No aortic valve stenosis or regurgitation. Tricuspid Valve Structurally normal tricuspid valve. No tricuspid stenosis. Trace tricuspid regurgitation. Pulmonic Valve Pulmonic valve not well visualized. Trace pulmonic regurgitation. Pericardium No pericardial effusion. Aorta Normal size aortic root and proximal ascending aorta. CONCLUSIONS Moderate LVH Left ventricular ejection fraction 55-60% Technically difficult study, bubble study not able to be performed. Mild mitral regurgitation Trace tricuspid regurgitation No pericardial effusion Previewed by: Dr. Guillermo Rolle DO (Electronically Signed) Final Date: 23 October 2021 12:51
--- NOTE | 2021-10-23 14:35 | US ---
EXAMINATION TYPE: US carotid duplex BILAT DATE OF EXAM: 10/23/2021 COMPARISON: NONE CLINICAL HISTORY: CVA. CVA EXAM MEASUREMENTS: RIGHT: Peak Systolic Velocity (PSV) cm/sec ----- Right CCA: 71.6 ----- Right ICA: 65.1 ----- Right ECA: 101.6 ICA/CCA ratio: 0.9 RIGHT: End Diastole cm/sec ----- Right CCA: 15.5 ----- Right ICA: 16.8 ----- Right ECA: 14.4 LEFT: Peak Systolic Velocity (PSV) cm/sec ----- Left CCA: 73.6 ----- Left ICA: 68.0 ----- Left ECA: 67.2 ICA/CCA ratio: 0.9 LEFT: End Diastole cm/sec ----- Left CCA: 16.7 ----- Left ICA: 13.1 ----- Left ECA: 8.9 VERTEBRALS (direction of flow): Right Vertebral: Antegrade Left Vertebral: Antegrade Rhythm: Normal Grayscale, color Doppler, spectral Doppler imaging performed the carotid arteries. Waveform analysis does not show significant stenosis of the internal carotid arteries. IMPRESSION: No hemodynamic significant stenosis of the proximal internal carotid arteries by Doppler criteria, an indirect measurement of carotid stenosis Criteria for Assigning % of Stenosis / Diameter reduction (Estimation based on the indirect measurements of the internal carotid artery velocities (ICA PSV). 1. Normal (no stenosis)=ICA PSV < 125 cm/s: ratio < 2.0: ICA EDV<40 cm/s. 2. Less than 50% stenosis=ICA PSV < 125 cm/s: ratio < 2.0: ICA EDV<40 cm/s. 3. 50 to 69% stenosis=ICA PSV of 125 to 230 cm/s: ration 2.0 ? 4.0: ICA EDV 40-100 cm/s. 4. Greater than 70% stenosis to near occlusion= ICA PSV > 230 cm/s: ratio > 4.0: ICA EDV > 100 cm/s. 5. Near occlusion= ICA PSV velocities may be low or undetectable: variable ratio and ICA EDV. 6. Total occlusion=unable to detect flow.
--- NOTE | 2021-10-23 15:19 | MR ---
EXAMINATION TYPE: MR angio head wo con DATE OF EXAM: 10/23/2021 COMPARISON: NONE HISTORY: Acute CVA TECHNIQUE: Time of flight images focusing on the [place] were performed without contrast.. 2-D and 3-D postprocessing imaging is performed on independent workstation and reviewed. FINDINGS: Slightly suboptimal due to motion artifact. Patent bilateral vertebral arteries, right is d ominant. Small caliber vertebrobasilar system. Patent posterior communicating arteries filling the bi lateral P2 segments. Hypoplastic bilateral P1 segments. Patent anterior communicating artery. No significant focal stenosis or aneurysm in the anterior circu lation. IMPRESSION: No significant focal stenosis or aneurysm at the level of the [place].
--- NOTE | 2021-10-23 15:27 | MR ---
EXAMINATION TYPE: MR brain wo/w con DATE OF EXAM: 10/23/2021 COMPARISON: CT brain earlier today. HISTORY: Acute CVA, meningioma TECHNIQUE: Multiplanar, multisequence images of the brain and brainstem is performed without and with IV contras t, utilizing 11 mL intravenous Gadavist . FINDINGS: Diffusion weighted images demonstrate oval 8 x 3 mm area of increased signal on diffusion w eighted images with diminished signal on ADC mapping showing subtle T2 hyperintensity near the juncti on of the posterior limb internal capsule and the anterolateral thalamus consistent with evolving acu te lacunar infarct. Background mild ventricular and sulcal prominence and scattered small foci of T2 hyperintensity throu ghout the white matter are redemonstrated. Midline structures demonstrate normal morphology. The craniocervical junction appears within normal limits. Post contrast images demonstrate no abnormal enhancement. Over the right frontal region ther e is prominent nonenhancing 1.9 x 1.5 cm bony projection axial image 23 with local mass effect, possi ble initially ossified meningioma or other etiology. The dural venous sinuses appear patent. The visu alized sinuses are clear and the globes are intact. IMPRESSION: Evolving acute lacunar infarct near junction of left thalamus and posterior limb internal capsule. A Yellow level critical message alert has been initiated for Malika Means MD via the [employer] Critical Results System on 10/23/2021 3:25 PM. This message alert has been sent to Malika Means MD v ia the preferences provided by the clinician for the receipt of Radiology Critical Findings. Message ID [id number].
[2021-10-23 16:40] LABS: Glucose,Whole Blood 217 mg/dL (75-99)
[2021-10-23] MEDS ORDERED: CLOPIDOGREL 75 MG TAB PO STA (17:01)
[2021-10-23] MEDS ORDERED: PANTOPRAZOLE 40 MG/10 ML VIAL IVP SCH (19:00)
[2021-10-23 20:37] LABS: Glucose,Whole Blood 228 mg/dL (75-99)
[2021-10-23] MEDS: atenoloL 25 MG TAB PO SCH (21:10)
[2021-10-23] MEDS: amLODIPine 5 MG TAB PO SCH (21:10)
[2021-10-23] MEDS: MONTELUKAST 10 MG TAB PO SCH (21:10)
[2021-10-23] MEDS: HEPARIN SODIUM,PORCINE/PF 5,000 UNIT/0.5 ML SYRINGE SQ SCH (21:11)
[2021-10-23] MEDS ORDERED: MELATONIN 5 MG TABLET PO PRN (22:31)
[2021-10-24] MEDS: QUEtiapine 100 MG TAB PO SCH ×2 (03:46→21:04)
[2021-10-24 06:35] LABS: Glucose,Whole Blood 377 mg/dL (75-99)
[2021-10-24] MEDS: INSULIN ASPART (NovoLOG) 100 UNIT/ML VIAL SQ SCH ×4 (07:07→21:05)
[2021-10-24] MEDS: PANTOPRAZOLE 40 MG TABLET PO SCH (07:08)
[2021-10-24] MEDS: DEXTROSE 5%-0.9% NACL 1,000 ML IV SCH (08:48)
[2021-10-24] MEDS ORDERED: FAMOTIDINE 20 MG TAB PO SCH (09:00)
[2021-10-24] MEDS ORDERED: NICOTINE 14MG/24HR PATCH TRANSDERM SCH (09:00)
[2021-10-24] MEDS ORDERED: ASPIRIN 325 MG TAB PO SCH (09:00)
[2021-10-24] MEDS ORDERED: FAMOTIDINE 20 MG/2 ML VIAL IV SCH ×2 (09:00)
[2021-10-24] MEDS: NICOTINE 21MG/24HR PATCH TRANSDERM SCH (09:29)
[2021-10-24] MEDS: ASPIRIN 325 MG TAB PO SCH (09:29)
[2021-10-24] MEDS: HEPARIN SODIUM,PORCINE/PF 5,000 UNIT/0.5 ML SYRINGE SQ SCH ×2 (09:29→21:06)
[2021-10-24] MEDS: CYANOCOBALAMIN 500 MCG TAB PO SCH (09:29)
[2021-10-24] MEDS: FOLIC ACID 1 MG TAB PO SCH (09:29)
[2021-10-24] MEDS ORDERED: INSULIN DETEMIR (LEVEMIR) 100 UNIT/ML SYR SQ SCH (09:30)
[2021-10-24] MEDS: CLOPIDOGREL 75 MG TAB PO SCH (09:30)
[2021-10-24 10:11] LABS: Basophils # (A) 0.1 k/uL (0-0.2); Basophils % (A) 1 %; Eosinophils # (A) 0.2 k/uL (0-0.7); Eosinophils % (A) 2 %; HCT 46.3 % (34.0-46.0); Lymphocytes # (A) 2.4 k/uL (1.0-4.8); Lymphocytes % (A) 20 %; MCH 27.8 pg (25.0-35.0); MCHC 32.3 g/dL (31.0-37.0); Mean Platelet Volume 6.6; Monocytes # (A) 0.5 k/uL (0-1.0); Monocytes % (A) 4 %; Neutrophils # (A) 8.6 k/uL (1.3-7.7); Neutrophils % (A) 71 %; Platelet Count 717 k/uL (150-450); RBC 5.38 m/uL (3.80-5.40); RDW 13.4 % (11.5-15.5); WBC 12.1 k/uL (3.8-10.6)
[2021-10-24 10:22] LABS: African American GFR (CKD) 48 (>60 ml/min/1.73 sqM); Anion Gap 11 mmol/L; Blood Urea Nitrogen 20 mg/dL (7-17); Calcium 9.5 mg/dL (8.4-10.2); Carbon Dioxide 24 mmol/L (22-30); Chloride 98 mmol/L (98-107); Glucose 345 mg/dL (74-99); Magnesium 1.9 mg/dL (1.6-2.3); Non-African American GFR(CKD) 41 (>60 ml/min/1.73 sqM); Potassium 4.2 mmol/L (3.5-5.1); Sodium 133 mmol/L (137-145)
--- NOTE | 2021-10-24 11:17 | P.PN ---
Subjective This is a pleasant 66 years old female with past medical history of hypertension, diabetes mellitus and cigarette smoker. Patient states she has ch ronic kidney disease as well Presents because of right-sided weakness and numbness for the last 2-3 days. Patient states that she has recently diagnosed with cough at about 2-3 weeks ago with cough sore throat and diarrhea which is improved now. However for the last 2-3 she started complaining of from numbness in her feet and tongue and that site of the loop associated with weakness more of the lower extremities. She notices her hand also week and she's been dropping.. Associated with little headache but no blurred vision. Her told her that her sound looks of. She denies chest pain or dyspnea. She has little coughing. She has no diarrhea actually she is constipated area no abdominal pain or dysuria. No urgency. She is hemodynamically stable. Labs showing mild leukocytosis at 13.5. INR is 0.9, d-dimer is -0.3. Creatinine elevated at 1.6. Also she was hyperglycemic on admission at 44, currently last blood glucose was 154 Urine analysis is negative for infection. CT of the brain, large right frontal calcified meningioma. No acute intracranial abnormality Chest x-ray: Normal chest Emergency room patient was started on aspirin 325 mg She states at home she takes 88 units of Lantus and insulin sliding scale for example yesterday she took 28 units with this morning meal at health 14 units with the dining time. She has to with 2 meals and she was also 10 units for the snack in the evening. Last hemoglobin was 5+% as per patient She smokes about less than 2 packs per day and she was counseled to quit. She agrees to the nicotine patch. She denies alcohol or illicit drugs. 10/24/2021 Patient had MRI yesterday showing evolving stroke and lacunar infarct near the left thalamus and posterior limb of internal capsule. Patient received a loading dose of Plavix and now currently she is kept on Plavix and aspirin 325 mg Patient and feels that her speech difficulties improving, her right- sided weakness is starts getting better. No other new complaints. Patient may benefit from rehab upon discharge Keep holding triamterene and hydrochlorothiazide for better control of blood pressure. Blood pressure this morning is 120/78. Also holding her diabetes medication however her sugars start getting high again today therefore we stopped her D5 normal saline and subtotal Levemir 5 units and insulin sliding scale, we'll going to monitor her glucoses closely. Discussed With patient and in they agree Objective - Vital Signs Vital signs: Vital Signs Temp 98.2 F 10/24/21 09:22 Pulse 72 10/24/21 09:22 Resp 20 10/24/21 09:22 BP 120/78 10/24/21 09:22 Pulse Ox 99 10/24/21 09:22 FiO2 Intake & Output 10/23/21 10/24/21 10/24/21 18:59 06:59 18:59 Intake Total 480 Output Total 400 Balance 80 Weight 108.862 kg 122.5 kg Intake: Oral 480 Output: Urine 400 Other: Voiding Method Toilet # Voids 1 2 # Bowel Movements 1 - Exam GENERAL: The patient is alert and oriented x3, not in any acute distress, obese HEENT: Pupils are round and equally reacting to light. EOMI. No scleral icterus. No conjunctival pallor. Normocephalic, atraumatic. No pharyngeal erythema. No thyromegaly. CARDIOVASCULAR: S1 and S2 present. No murmurs, rubs, or gallops. PULMONARY: Chest is clear to auscultation, no wheezing or crackles. ABDOMEN: Soft, nontender, nondistended, normoactive bowel sounds. No palpable organomegaly. MUSCULOSKELETAL: No joint swelling or deformity. EXTREMITIES: No cyanosis, clubbing, or pedal edema. NEUROLOGICAL: Cranial nerves are grossly intact. Right hemiparesis, left more than arm. Improving. No slurred speech. No diplopia or blurred vision. SKIN: No rashes. no petechiae. - Labs CBC & Chem 7: 10/24/21 09:39 10/24/21 09:39 Labs: Abnormal Lab Results - Last 24 Hours (Table) 10/23/21 10/23/21 10/23/21 Range/Units 12:16 16:36 20:23 WBC (3.8-10.6) k/uL Hct (34.0-46.0) % Plt Count (150-450) k/uL Neutrophils # (1.3-7.7) k/uL POC Glucose (mg/dL) 179 H 217 H 228 H (75-99) mg/dL 10/24/21 10/24/21 Range/Units 06:30 09:39 WBC 12.1 H (3.8-10.6) k/uL Hct 46.3 H (34.0-46.0) % Plt Count 717 H (150-450) k/uL Neutrophils # 8.6 H (1.3-7.7) k/uL POC Glucose (mg/dL) 377 H (75-99) mg/dL Assessment and Plan Assessment: Acute stroke with right hemiparesis secondary to left thalamic and posterior limb of internal capsule lacunar infarct large right frontal calcified meningioma Diabetes mellitus with hyperglycemia on admission Low borderline vitamin B12 and folate, been replaced Chronic kidney disease stage III Hypertension Nicotine dependence Obesity with BMI of 36.5 Plan: This is a pleasant 66 years old female who presents with stroke and right hemiparesis. Secondary to left thalamic and internal capsules infarct/stroke Neuro check Continue with aspirin and Plavix Neurology consult Discontinue IV fluids and start Levemir 5 units saline Hold insulin and continue with insulin sliding scale. Resume atenolol, Norvasc, triamterene-hydrochlorothiazide. while Hold Cardizem and hydralazine, Lasix. Keep monitor and blood pressure Labs and medication were reviewed.. Continue same treatment. Continue with symptomatic treatment. Resume home medication. Monitor lytes and vitals. DVT and GI prophylaxis. Further recommendations depends on the clinical course of the patient DVT prophylaxis: Subcutaneous heparin GI Prophylaxis: Pepcid PT/OT: Pending Swallow evaluation Prognosis is guarded
[2021-10-24 11:32] LABS: Glucose,Whole Blood 382 mg/dL (75-99)
[2021-10-24] MEDS ORDERED: INSULIN DETEMIR (LEVEMIR) 100 UNIT/ML SYR SQ STA (12:05)
[2021-10-24 16:28] LABS: Glucose,Whole Blood 319 mg/dL (75-99)
[2021-10-24] MEDS ORDERED: CYANOCOBALAMIN 1,000 MCG/ML 1 ML VIAL IM ONE (19:02)
[2021-10-24 19:33] LABS: Chol/HDL Ratio 2.98 Ratio; LDL Cholesterol,Calculated 59.3 mg/dL (0.0-131.0)
[2021-10-24 20:20] LABS: Glucose,Whole Blood 291 mg/dL (75-99)
[2021-10-24] MEDS: atenoloL 25 MG TAB PO SCH (21:04)
[2021-10-24] MEDS: MONTELUKAST 10 MG TAB PO SCH (21:04)
[2021-10-24] MEDS: amLODIPine 5 MG TAB PO SCH (21:04)
[2021-10-25] MEDS: DEXTROSE 5%-0.9% NACL 1,000 ML IV SCH ×2 (02:28→11:57)
[2021-10-25 05:59] LABS: Glucose,Whole Blood 429 mg/dL (75-99)
[2021-10-25] MEDS: PANTOPRAZOLE 40 MG TABLET PO SCH (06:27)
[2021-10-25] MEDS: INSULIN ASPART (NovoLOG) 100 UNIT/ML VIAL SQ SCH ×4 (06:28→20:48)
[2021-10-25] MEDS ORDERED: INSULIN DETEMIR (LEVEMIR) 100 UNIT/ML SYR SQ SCH (07:00)
[2021-10-25] MEDS ORDERED: INSULIN DETEMIR (LEVEMIR) 100 UNIT/ML SYR SQ ONE (09:30)
[2021-10-25] MEDS: NICOTINE 21MG/24HR PATCH TRANSDERM SCH (09:34)
[2021-10-25] MEDS: HEPARIN SODIUM,PORCINE/PF 5,000 UNIT/0.5 ML SYRINGE SQ SCH ×2 (09:34→21:05)
[2021-10-25] MEDS: ASPIRIN 325 MG TAB PO SCH (09:34)
[2021-10-25 09:35] LABS: Basophils # (A) 0.1 k/uL (0-0.2); Basophils % (A) 1 %; Eosinophils # (A) 0.2 k/uL (0-0.7); Eosinophils % (A) 2 %; HCT 40.5 % (34.0-46.0); HGB 13.3 gm/dL (11.4-16.0); Lymphocytes # (A) 2.3 k/uL (1.0-4.8); Lymphocytes % (A) 20 %; MCH 28.4 pg (25.0-35.0); MCHC 32.9 g/dL (31.0-37.0); MCV 86.1 fL (80.0-100.0); Mean Platelet Volume 6.9; Monocytes # (A) 0.5 k/uL (0-1.0); Monocytes % (A) 5 %; Neutrophils # (A) 8.5 k/uL (1.3-7.7); Neutrophils % (A) 71 %; Platelet Count 682 k/uL (150-450); RDW 13.5 % (11.5-15.5); WBC 11.9 k/uL (3.8-10.6)
[2021-10-25] MEDS: CLOPIDOGREL 75 MG TAB PO SCH (09:35)
[2021-10-25] MEDS: CYANOCOBALAMIN 500 MCG TAB PO SCH (09:35)
[2021-10-25] MEDS: FAMOTIDINE 20 MG TAB PO SCH (09:35)
[2021-10-25] MEDS: FOLIC ACID 1 MG TAB PO SCH (09:35)
[2021-10-25 09:52] LABS: Calcium 9.1 mg/dL (8.4-10.2); Magnesium 1.8 mg/dL (1.6-2.3); Potassium 4.3 mmol/L (3.5-5.1)
--- NOTE | 2021-10-25 11:36 | P.PN ---
Subjective Progress Note Date: 10/24/21 Patient was seen for a follow-up. Patient's family was also present. Patient says that she is feeling much better. She ate her lunch. No new focal symptoms. She wants to go home. Objective - Vital Signs Vital signs: Vital Signs Temp 97.7 F 10/24/21 15:31 Pulse 71 10/24/21 15:31 Resp 18 10/24/21 15:31 BP 133/81 10/24/21 15:31 Pulse Ox 100 10/24/21 16:37 FiO2 Intake & Output 10/24/21 10/24/21 10/25/21 06:59 18:59 06:59 Intake Total 480 Output Total 400 Balance 80 Weight 122.5 kg Intake: Oral 480 Output: Urine 400 Other: Voiding Method Toilet # Voids 2 1 # Bowel Movements 1 - Exam Patient's mental status, speech and language functions are normal. Cranial nerves are normal. No facial droop, visual crooks full. Tongue protrudes the midline. On muscle strength testing there is no pronator drift. The strength is normal in arms distally and proximally. She has slightly decreased endurance of the right arm for checking the pronator drift. Her lower limbs have normal strength at the ankles. She is at baseline weak at the hips. Sensations are equal bilaterally. Ataxic for [id number] on the right, but better than yesterday. - Labs CBC & Chem 7: 10/25/21 09:03 10/25/21 09:03 Labs: Abnormal Lab Results - Last 24 Hours (Table) 10/23/21 10/24/21 10/24/21 Range/Units 20:23 06:30 09:39 WBC (3.8-10.6) k/uL Hct (34.0-46.0) % Plt Count (150-450) k/uL Neutrophils # (1.3-7.7) k/uL Sodium 133 L (137-145) mmol/L BUN 20 H (7-17) mg/dL Creatinine 1.36 H (0.52-1.04) mg/dL Glucose 345 H (74-99) mg/dL POC Glucose (mg/dL) 228 H 377 H (75-99) mg/dL 10/24/21 10/24/21 10/24/21 Range/Units 09:39 11:29 16:26 WBC 12.1 H (3.8-10.6) k/uL Hct 46.3 H (34.0-46.0) % Plt Count 717 H (150-450) k/uL Neutrophils # 8.6 H (1.3-7.7) k/uL Sodium (137-145) mmol/L BUN (7-17) mg/dL Creatinine (0.52-1.04) mg/dL Glucose (74-99) mg/dL POC Glucose (mg/dL) 382 H 319 H (75-99) mg/dL Assessment and Plan Assessment: * Evolving acute lacunar infarct near the junction of the left thalamus and posterior limb internal. Patient Has Presented with right-sided numbness and right hemiataxia. * Cerebral meningioma right frontal region. Likely asymptomatic, as all symptoms are on the ipsilateral side. * Diabetes * Hypertension * Hyperlipidemia * Chronic, heavy tobacco use * Stage III renal disease. Plan: * MRI of the brain with and without contrast revealed evolving acute lacunar infarct near the junction of the left thalamus and posterior limb internal capsule. Post contrast images demonstrate no abnormal enhancement. Over the right frontal region, there is prominent nonenhancing 1.9 x 1.5 cm bony projection exam image 23 with a local mass affect, possible initially ossified meningioma or other etiology. I personally reviewed MRI and agree with the findings. * MRA brain showed no aneurysm or intracranial stenosis. * Carotid Doppler revealed no hemodynamic significant stenosis of the proximal internal carotid arteries. Antegrade flow in both vertebral arteries. * 2-D echo with bubble study revealed moderate LVH, EF is normal 55-60%. Technically difficult study, bubble study not able to be performed. Mild MR. * Continue dual antiplatelet medication. After 21 days probably would be able to switch to a single agent. * Strongly recommend complete tobacco cessation. * Telemetry monitoring showing sinus rhythm in the 80s. No other arrhythmia. * Blood pressure running well 133/65. * DVT prophylaxis: Heparin subcu 5000 unit every 12 hours. * PT OT, speech therapy. Patient's family states that she has 24-hour care available at home and wants to go home. * Neurologically clear for discharge, if cleared by PT and OT. May follow up with neurologist as an outpatient in 2-3 weeks.
[2021-10-25 11:43] LABS: Glucose,Whole Blood 402 mg/dL (75-99)
[2021-10-25] MEDS ORDERED: INSULIN DETEMIR (LEVEMIR) 100 UNIT/ML SYR SQ STA (12:06)
[2021-10-25 16:12] LABS: Glucose,Whole Blood 255 mg/dL (75-99)
--- NOTE | 2021-10-25 17:19 | P.PN ---
Subjective This is a pleasant 66 years old female with past medical history of hypertension, diabetes mellitus and cigarette smoker. Patient states she has ch ronic kidney disease as well Presents because of right-sided weakness and numbness for the last 2-3 days. Patient states that she has recently diagnosed with cough at about 2-3 weeks ago with cough sore throat and diarrhea which is improved now. However for the last 2-3 she started complaining of from numbness in her feet and tongue and that site of the loop associated with weakness more of the lower extremities. She notices her hand also week and she's been dropping.. Associated with little headache but no blurred vision. Her told her that her sound looks of. She denies chest pain or dyspnea. She has little coughing. She has no diarrhea actually she is constipated area no abdominal pain or dysuria. No urgency. She is hemodynamically stable. Labs showing mild leukocytosis at 13.5. INR is 0.9, d-dimer is -0.3. Creatinine elevated at 1.6. Also she was hyperglycemic on admission at 44, currently last blood glucose was 154 Urine analysis is negative for infection. CT of the brain, large right frontal calcified meningioma. No acute intracranial abnormality Chest x-ray: Normal chest Emergency room patient was started on aspirin 325 mg She states at home she takes 88 units of Lantus and insulin sliding scale for example yesterday she took 28 units with this morning meal at health 14 units with the dining time. She has to with 2 meals and she was also 10 units for the snack in the evening. Last hemoglobin was 5+% as per patient She smokes about less than 2 packs per day and she was counseled to quit. She agrees to the nicotine patch. She denies alcohol or illicit drugs. 10/24/2021 Patient had MRI yesterday showing evolving stroke and lacunar infarct near the left thalamus and posterior limb of internal capsule. Patient received a loading dose of Plavix and now currently she is kept on Plavix and aspirin 325 mg Patient and feels that her speech difficulties improving, her right- sided weakness is starts getting better. No other new complaints. Patient may benefit from rehab upon discharge Keep holding triamterene and hydrochlorothiazide for better control of blood pressure. Blood pressure this morning is 120/78. Also holding her diabetes medication however her sugars start getting high again today therefore we stopped her D5 normal saline and subtotal Levemir 5 units and insulin sliding scale, we'll going to monitor her glucoses closely. Discussed With patient and in they agree 10/25/2021 Patient states that her right-sided weakness that resolved completely but looks better. Actually patient was asking if she can go home with at bedside, after further discussion she agrees to stay in the hospital for further m onitoring for now. She is hemodynamically stable. She does not like the food here and she has low appetite, she uses 88 units of long acting insulin at home currently she is insulin requirement increased to Levemir 60 units daily as well as sliding scale. Her triamterene and hydrochlorothiazide are still on hold. No leg edema. Neurologist on the case and to the patient for discharge on the current medication. However patient reports watery diarrhea today. No abdominal pain or vomiting. We will check for C. diff although suspicion is this likely. She is currently on aspirin 325 mg and Plavix 75 mg. Also she is on vitamin B12 and folate replacement therapy and patient and explained the risk of low vitamin D including but not limited to a reversible nerve damage Objective - Vital Signs Vital signs: Vital Signs Temp 97.8 F 10/25/21 09:30 Pulse 62 10/25/21 09:30 Resp 18 10/25/21 09:30 BP 148/83 10/25/21 09:30 Pulse Ox 98 10/25/21 09:30 FiO2 Intake & Output 10/24/21 10/25/21 10/25/21 18:59 06:59 18:59 Intake Total 240 Output Total 200 Balance 40 Intake: Oral 240 Output: Urine 200 Other: Voiding Method Toilet Toilet # Voids 1 1 1 # Bowel Movements 1 - Exam GENERAL: The patient is alert and oriented x3, not in any acute distress, obese HEENT: Pupils are round and equally reacting to light. EOMI. No scleral icterus. No conjunctival pallor. Normocephalic, atraumatic. No pharyngeal erythema. No thyromegaly. CARDIOVASCULAR: S1 and S2 present. No murmurs, rubs, or gallops. PULMONARY: Chest is clear to auscultation, no wheezing or crackles. ABDOMEN: Soft, nontender, nondistended, normoactive bowel sounds. No palpable organomegaly. MUSCULOSKELETAL: No joint swelling or deformity. EXTREMITIES: No cyanosis, clubbing, or pedal edema. NEUROLOGICAL: Cranial nerves are grossly intact. Right hemiparesis, left more than arm. Improving. No slurred speech. No diplopia or blurred vision. SKIN: No rashes. no petechiae. - Labs CBC & Chem 7: 10/25/21 09:03 10/25/21 09:03 Labs: Abnormal Lab Results - Last 24 Hours (Table) 10/24/21 10/24/21 10/24/21 Range/Units 09:39 16:26 20:17 WBC (3.8-10.6) k/uL Plt Count (150-450) k/uL Neutrophils # (1.3-7.7) k/uL Sodium (137-145) mmol/L BUN (7-17) mg/dL Creatinine (0.52-1.04) mg/dL Glucose (74-99) mg/dL POC Glucose (mg/dL) 319 H 291 H (75-99) mg/dL Triglycerides 195.00 H (0.00-149.00) mg/dL 10/25/21 10/25/21 10/25/21 Range/Units 05:54 09:03 09:03 WBC 11.9 H (3.8-10.6) k/uL Plt Count 682 H (150-450) k/uL Neutrophils # 8.5 H (1.3-7.7) k/uL Sodium 131 L (137-145) mmol/L BUN 20 H (7-17) mg/dL Creatinine 1.27 H (0.52-1.04) mg/dL Glucose 406 H (74-99) mg/dL POC Glucose (mg/dL) 429 H (75-99) mg/dL Triglycerides (0.00-149.00) mg/dL Assessment and Plan Assessment: Acute stroke with right hemiparesis secondary to left thalamic and posterior limb of internal capsule lacunar infarct large right frontal calcified meningioma Diabetes mellitus with hyperglycemia on admission Low borderline vitamin B12 and folate, been replaced Chronic kidney disease stage III Hypertension Nicotine dependence Obesity with BMI of 36.5 Plan: This is a pleasant 66 years old female who presents with stroke and right hemiparesis. Secondary to left thalamic and internal capsules infarct/stroke Continue with aspirin and Plavix Neurology consult. The patient for discharge Continue with Levemir 60 units Check for C. diff continue with insulin sliding scale. Resume atenolol, Norvasc, triamterene-hydrochlorothiazide. while Hold Cardizem hydralazine, Lasix. Keep monitor and blood pressure Resume Cardizem tonight PT/OT still pending Labs and medication were reviewed.. Continue same treatment. Continue with symptomatic treatment. Resume home medication. Monitor lytes and vitals. DVT and GI prophylaxis. Further recommendations depends on the clinical course of the patient DVT prophylaxis: Subcutaneous heparin GI Prophylaxis: Pepcid
[2021-10-25 20:27] LABS: Glucose,Whole Blood 79 mg/dL (75-99)
[2021-10-25] MEDS ORDERED: DILTIAZEM ORAL 60 MG TAB PO SCH (21:00)
[2021-10-25] MEDS: MONTELUKAST 10 MG TAB PO SCH (21:05)
[2021-10-25] MEDS: atenoloL 25 MG TAB PO SCH (21:05)
[2021-10-25] MEDS: QUEtiapine 100 MG TAB PO SCH (21:05)
[2021-10-25] MEDS: amLODIPine 5 MG TAB PO SCH (21:05)
[2021-10-26 01:57] LABS: Glucose,Whole Blood 156 mg/dL (75-99)
--- NOTE | 2021-10-26 06:01 | P.CONS ---
History of Present Illness - Chief Complaint Gait disturbance, right hemiparesthesias - History of Present Illness I had the opportunity to see patient for inpatient rehab consultation with regard to gait disturbance. Patient admitted to Dr. sahu October 23 acute onset right-sided weakness of 3 days' duration. Seen by neurology, Dr. Otero, who notes stroke and meningioma. Note head CT demonstrated left frontal calcified meningioma. Chest x-ray negative. Carotid Doppler done. Brain MRA negative for aneurysm. Brain MRI with left thalamic and internal capsule infarct. PT reports minimal assistance for bed mobility, transfer, gait 30 feet with roller walker. OT and speech prescribed. Previous functional history as elicited from patient: 66-year-old right-handed white female who is lives in one form with . Both retired. does the cooking, laundry, driving for at least the last few years. He is also been assisting patient with sitdown shower and mobility with 4 wheeled walker. Disability related to neuropathy. PCP Dr. Pérez Cho. Patient smokes 2 packs per day and denies alcohol. Review of Systems Review of systems: ENT: Denies sneezes or discharge. Eyes: Denies discharge or photophobia. Cardiac: Denies chest pain or palpitation. Pulmonary: Denies cough or shortness of breath. Breast: Denies discharge or lumps. Gastrointestinal: Denies nausea, emesis, constipation, diarrhea. Genitourinary: Denies discharge or frequency. Musculoskeletal: Denies muscle or bone aches. Neurologic: Long-standing lower extremity weakness. New onset right side and arm weakness. Endocrine: Denies shakes or sweats. Oncology: Denies cancers. Dermatologic: Denies rash, itching, pruritus. ALLERGY/immunology: Denies sneezes, rashes. Past Medical History Past Medical History: Diabetes Mellitus, Hypertension Additional Past Medical History / Comment(s): kidney disease History of Any Multi-Drug Resistant Organisms: None Reported Past Surgical History: Appendectomy, Cholecystectomy, Orthopedic Surgery, Tubal Ligation Additional Past Surgical History / Comment(s): eyes, Past Anesthesia/Blood Transfusion Reactions: No Reported Reaction Past Psychological History: No Psychological Hx Reported Smoking Status: Current every day smoker Past Alcohol Use History: None Reported Past Drug Use History: None Reported - Past Family History Mother Additional Family Medical History / Comment(s): Alzeimer's Father Additional Family Medical History / Comment(s): Still alive, cancer (prostate) Medications and Allergies Home Medications Medication Instructions Recorded Confirmed Type Cyclobenzaprine [Flexeril] 10 mg PO BID 10/23/21 10/23/21 History Ergocalciferol [Vitamin D2 (1250 1,250 mcg PO TH 10/23/21 10/23/21 History Mcg = [id number] Iu)] Furosemide [Lasix] 40 mg PO DAILY 10/23/21 10/23/21 History HYDROcodone/APAP 10-325MG [[place] 1 tab PO BID 10/23/21 10/23/21 History 10-325] Insulin Aspart [NovoLOG Flexpen] See Protocol SQ AC-TID 10/23/21 10/23/21 History Insulin Glargine,Hum.rec.anlog 88 unit SQ W/SUPPER 10/23/21 10/23/21 History [Lantus Solostar Pen] Loratadine [Claritin] 10 mg PO HS 10/23/21 10/23/21 History Montelukast [Singulair] 10 mg PO HS 10/23/21 10/23/21 History Omeprazole 40 mg PO HS 10/23/21 10/23/21 History Ondansetron [Zofran] 4 mg PO Q8H PRN 10/23/21 10/23/21 History QUEtiapine [SEROquel] 100 mg PO HS 10/23/21 10/23/21 History Rosuvastatin [Crestor] 10 mg PO HS 10/23/21 10/23/21 History Triamterene-Hctz 37.5-25Mg 1 cap PO DAILY 10/23/21 10/23/21 History [Dyazide 37.5-25 Capsule] amLODIPine [Norvasc] 5 mg PO HS 10/23/21 10/23/21 History atenoloL [Tenormin] 25 mg PO HS 10/23/21 10/23/21 History dilTIAZem HCL 60 mg PO HS 10/23/21 10/23/21 History hydrALAZINE HCL [Apresoline] 25 mg PO HS 10/23/21 10/23/21 History hydrALAZINE HCL [Apresoline] 50 mg PO DAILY 10/23/21 10/23/21 History hydrOXYzine pamoate [hydrOXYzine 100 mg PO DAILY 10/23/21 10/23/21 History PAMOATE] Allergies Allergy/AdvReac Type Severity Reaction Status Date / Time No Known Allergies Allergy Verified 10/23/21 06:59 Physical Exam Vitals: Vital Signs Temp Pulse Resp BP Pulse Ox 10/26/21 03:23 97.9 F 58 L 17 95/50 96 10/25/21 23:45 98.6 F 66 16 129/57 95 10/25/21 20:00 97.7 F 66 17 131/82 98 10/25/21 15:34 98.1 F 64 20 143/84 100 10/25/21 13:10 67 10/25/21 12:25 67 18 157/85 99 10/25/21 09:30 97.8 F 62 18 148/83 98 10/25/21 08:00 62 Intake and Output 10/25/21 10/25/21 10/26/21 14:59 22:59 06:59 Intake Total 240 Output Total 200 Balance 40 Intake: Oral 240 Output: Urine 200 Other: Voiding Method Toilet Toilet Toilet # Voids 1 2 1 Skin: Good color, texture, turgor. General: Overweight build and comfortable appearance. Head: Normocephalic, atraumatic. Eyes: Symmetric. Pupils equal round. Ears: Symmetric. Hearing within normal limits. Mouth: Clear. Neck: Supple. Carotid without bruit. Cardiac: Regular rate and rhythm. Lungs: Clear anteriorly and posteriorly. Abdomen: Soft active nontender. Overweight. Extremities: Normal tone. Neurological: Mental status: Alert, cooperative, pleasant. Cranial nerves: Symmetric facial tone and trapezius. Motor: Active movement left arm. Poor plus right arm and poor minus legs. Sensation: Intact left arm. DTRs: Symmetric and equal throughout. Mobility: Requires physical assist for any bed mobility. Results CBC & Chem 7: 10/25/21 09:03 10/25/21 09:03 Labs: Abnormal Lab Results - Last 24 Hours (Table) 10/25/21 10/25/21 10/25/21 Range/Units 05:54 09:03 09:03 WBC 11.9 H (3.8-10.6) k/uL Plt Count 682 H (150-450) k/uL Neutrophils # 8.5 H (1.3-7.7) k/uL Sodium 131 L (137-145) mmol/L BUN 20 H (7-17) mg/dL Creatinine 1.27 H (0.52-1.04) mg/dL Glucose 406 H (74-99) mg/dL POC Glucose (mg/dL) 429 H (75-99) mg/dL 10/25/21 10/25/21 10/26/21 Range/Units 11:41 16:11 01:55 WBC (3.8-10.6) k/uL Plt Count (150-450) k/uL Neutrophils # (1.3-7.7) k/uL Sodium (137-145) mmol/L BUN (7-17) mg/dL Creatinine (0.52-1.04) mg/dL Glucose (74-99) mg/dL POC Glucose (mg/dL) 402 H 255 H 156 H (75-99) mg/dL Assessment and Plan (1) CVA (cerebral vascular accident) Current Visit: Yes Status: Acute Code(s): I63.9 - CEREBRAL INFARCTION, UNSPECIFIED SNOMED Code(s): 728208769 Plan: Comments and plan: Patient with stroke and resultant right hemiparesthesias with complication underlying neuropathy long-standing leg weakness. At this time rehab prognosis guarded due to the long-standing leg weakness. Unsure patient would have enough endurance for full inpatient rehab program, participating with therapy 3 hours per day out of bed. Have discussed this with patient. Safety concerns noted. Patient preference at this time and understanding is that she was to go home yesterday and she is anticipating going home today. This would of course require support of her . I suspect he is already familiar with patient's previous physical care needs.
[2021-10-26 06:12] LABS: Glucose,Whole Blood 235 mg/dL (75-99)
[2021-10-26] MEDS: PANTOPRAZOLE 40 MG TABLET PO SCH (06:15)
[2021-10-26] MEDS: INSULIN ASPART (NovoLOG) 100 UNIT/ML VIAL SQ SCH ×4 (06:15→12:17)
[2021-10-26] MEDS ORDERED: INSULIN DETEMIR (LEVEMIR) 100 UNIT/ML SYR SQ SCH ×2 (07:00)
--- NOTE | 2021-10-26 07:43 | P.PN ---
Subjective Progress Note Date: 10/25/21 Patient was seen for a follow-up. Patient is feeling much better. Denies any new neurological symptoms. She wants to go home. Objective - Vital Signs Vital signs: Vital Signs Temp 97.8 F 10/25/21 09:30 Pulse 67 10/25/21 13:10 Resp 18 10/25/21 12:25 BP 157/85 10/25/21 12:25 Pulse Ox 99 10/25/21 12:25 FiO2 Intake & Output 10/24/21 10/25/21 10/25/21 18:59 06:59 18:59 Intake Total 240 Output Total 200 Balance 40 Intake: Oral 240 Output: Urine 200 Other: Voiding Method Toilet Toilet # Voids 1 1 1 # Bowel Movements 1 - Exam Patient's mental status, speech and language functions are normal. Cranial nerves are normal. No facial droop, visual crooks full. Tongue protrudes the midline. On muscle strength testing there is no pronator drift. The strength is normal in arms distally and proximally. She has slightly decreased endurance of the right arm for checking the pronator drift. Her lower limbs have normal strength at the ankles. She is at baseline weak at the hips. Sensations are equal bilaterally, with no neglect. Ataxic for [id number] on the right. - Labs CBC & Chem 7: 10/25/21 09:03 10/25/21 09:03 Labs: Abnormal Lab Results - Last 24 Hours (Table) 10/24/21 10/24/21 10/24/21 Range/Units 09:39 16:26 20:17 WBC (3.8-10.6) k/uL Plt Count (150-450) k/uL Neutrophils # (1.3-7.7) k/uL Sodium (137-145) mmol/L BUN (7-17) mg/dL Creatinine (0.52-1.04) mg/dL Glucose (74-99) mg/dL POC Glucose (mg/dL) 319 H 291 H (75-99) mg/dL Triglycerides 195.00 H (0.00-149.00) mg/dL 10/25/21 10/25/21 10/25/21 Range/Units 05:54 09:03 09:03 WBC 11.9 H (3.8-10.6) k/uL Plt Count 682 H (150-450) k/uL Neutrophils # 8.5 H (1.3-7.7) k/uL Sodium 131 L (137-145) mmol/L BUN 20 H (7-17) mg/dL Creatinine 1.27 H (0.52-1.04) mg/dL Glucose 406 H (74-99) mg/dL POC Glucose (mg/dL) 429 H (75-99) mg/dL Triglycerides (0.00-149.00) mg/dL 10/25/21 Range/Units 11:41 WBC (3.8-10.6) k/uL Plt Count (150-450) k/uL Neutrophils # (1.3-7.7) k/uL Sodium (137-145) mmol/L BUN (7-17) mg/dL Creatinine (0.52-1.04) mg/dL Glucose (74-99) mg/dL POC Glucose (mg/dL) 402 H (75-99) mg/dL Triglycerides (0.00-149.00) mg/dL Assessment and Plan Assessment: * Evolving acute lacunar infarct near the junction of the left thalamus and posterior limb internal. Patient has Presented with right-sided numbness and right hemiataxia. * Cerebral meningioma right frontal region. Likely asymptomatic, as all symptoms are on the ipsilateral side. * Diabetes * Hypertension * Hyperlipidemia * Chronic, heavy tobacco use * Stage III renal disease. Plan: * MRI of the brain with and without contrast revealed evolving acute lacunar infarct near the junction of the left thalamus and posterior limb internal capsule. Post contrast images demonstrate no abnormal enhancement. Over the right frontal region, there is prominent nonenhancing 1.9 x 1.5 cm bony projection exam image 23 with a local mass affect, possible initially ossified meningioma or other etiology. I personally reviewed MRI and agree with the findings. * MRA brain showed no aneurysm or intracranial stenosis. * Carotid Doppler revealed no hemodynamic significant stenosis of the proximal internal carotid arteries. Antegrade flow in both vertebral arteries. * 2-D echo with bubble study revealed moderate LVH, EF is normal 55-60%. Technically difficult study, bubble study not able to be performed. Mild MR. * Continue dual antiplatelet medication. After 21 days probably would be able to switch to a single agent. Patient was not on any antiplatelet agent at home prior to the stroke. Therefore aspirin 81 mg should be fine. * Strongly recommend complete tobacco cessation. * Telemetry monitoring showing sinus rhythm in the 80s. No other arrhythmia. * Blood pressure running well 157/85. * DVT prophylaxis: Heparin subcu 5000 unit every 12 hours. * PT OT, speech therapy. Patient's family states that she has 24-hour care available at home and wants to go home. Agree with physical medicine and rehab consult. * Neurologically clear for discharge, if cleared by PT and OT. May follow up with neurologist as an outpatient in 2-[address] Anthony Chou will be available for any neurological concerns in the morning.
[2021-10-26] MEDS: CLOPIDOGREL 75 MG TAB PO SCH (07:55)
[2021-10-26] MEDS: HEPARIN SODIUM,PORCINE/PF 5,000 UNIT/0.5 ML SYRINGE SQ SCH (07:55)
[2021-10-26] MEDS: NICOTINE 21MG/24HR PATCH TRANSDERM SCH (07:55)
[2021-10-26] MEDS: FOLIC ACID 1 MG TAB PO SCH (07:55)
[2021-10-26] MEDS: ASPIRIN 325 MG TAB PO SCH (07:55)
[2021-10-26] MEDS: FAMOTIDINE 20 MG TAB PO SCH (07:55)
[2021-10-26] MEDS: CYANOCOBALAMIN 500 MCG TAB PO SCH (07:55)
[2021-10-26 08:10] VITALS: PULSE 64; RESP 18
[2021-10-26 09:44] LABS: Basophils # (A) 0.1 k/uL (0-0.2); Basophils % (A) 1 %; Eosinophils # (A) 0.3 k/uL (0-0.7); Eosinophils % (A) 2 %; HCT 44.5 % (34.0-46.0); HGB 14.5 gm/dL (11.4-16.0); Lymphocytes # (A) 2.8 k/uL (1.0-4.8); Lymphocytes % (A) 23 %; MCHC 32.6 g/dL (31.0-37.0); MCV 85.7 fL (80.0-100.0); Mean Platelet Volume 6.7; Monocytes # (A) 0.5 k/uL (0-1.0); Monocytes % (A) 4 %; Neutrophils % (A) 67 %; Platelet Count 683 k/uL (150-450); RBC 5.19 m/uL (3.80-5.40); RDW 13.4 % (11.5-15.5); WBC 11.9 k/uL (3.8-10.6)
[2021-10-26 10:15] LABS: Calcium 9.4 mg/dL (8.4-10.2); Magnesium 1.9 mg/dL (1.6-2.3)
[2021-10-26 11:37] VITALS: BP 120/96; TEMP 98.3
[2021-10-26 11:38] LABS: Glucose,Whole Blood 290 mg/dL (75-99)
== END 2021-10-26 12:25 | disposition home health service (06) | DRG 65 ==
LOC: EC 23:35 → 3SCARD 10-23 04:34
PROVIDERS: ADMIT Hospitalist; ATTEND Hospitalist
DX: I63.81 Other cerebral infarction due to occlusion or stenosis of small artery (principal); Z68.41 Body mass index [BMI] 40.0-44.9, adult; G81.91 Hemiplegia, unspecified affecting right dominant side; E10.649 Type 1 diabetes mellitus with hypoglycemia without coma; E10.40 Type 1 diabetes mellitus with diabetic neuropathy, unspecified; E10.22 Type 1 diabetes mellitus with diabetic chronic kidney disease; D72.829 Elevated white blood cell count, unspecified; E10.65 Type 1 diabetes mellitus with hyperglycemia; D32.0 Benign neoplasm of cerebral meninges; N18.30 Chronic kidney disease, stage 3 unspecified; E66.9 Obesity, unspecified; Z79.4 Long term (current) use of insulin; I12.9 Hypertensive chronic kidney disease with stage 1 through stage 4 chronic kidney disease, or unspecified chronic kidney disease; Z28.310 Unvaccinated for COVID-19; R47.81 Slurred speech; R29.700 NIHSS score 0; R29.701 NIHSS score 1; E78.5 Hyperlipidemia, unspecified; H35.30 Unspecified macular degeneration; F17.210 Nicotine dependence, cigarettes, uncomplicated; Z71.6 Tobacco abuse counseling; Z79.899 Other long term (current) drug therapy; Z90.49 Acquired absence of other specified parts of digestive tract; Z87.19 Personal history of other diseases of the digestive system; Z98.51 Tubal ligation status; Z86.69 Personal history of other diseases of the nervous system and sense organs; Z98.890 Other specified postprocedural states; Z82.0 Family history of epilepsy and other diseases of the nervous system; Z80.42 Family history of malignant neoplasm of prostate
CPT/HCPCS: 36415; 70450; 70544; 70553; 71046; 80048; 80053; 80061; 81001; 82607; 82746; 83036; 83735; 84443; 84484; 85025; 85379; 85610; 85730; 93005; 93306; 93880; 99285

== ENCOUNTER → 2023-12-08 | Outpatient (CLI) | payer MEDICARE ==
[~2023-12-08] MED LIST: REGADENOSON 0.4 MG/5 ML SYRINGE IV ONE
--- NOTE | 2023-12-08 13:21 | NM ---
EXAMINATION TYPE: NM stress lexiscan cardiolite DATE OF EXAM: 12/08/2023 COMPARISON: NONE CLINICAL INDICATION: Female, 68 years old with history of I11.9 HYPERTENSIVE HEART DISEASE WITHOUT HE ART ELIDA; TECHNIQUE: After the intravenous administration of 10.7 mCi Tc 99m Sestamibi - Cardiolite resting SP ECT images acquired 45 minutes post injection. The patient received 0.4mg Lexiscan, 25.9 mCi Tc 99m Sestamibi - Stress images obtained [address] injection FINDINGS: Review of stress and rest SPECT images demonstrates a fixed perfusion defect along the anteroseptal w all which is more pronounced on rest. No distinct reversibility is seen. Gated analysis shows normal wall motion with an estimated left ventricular ejection fraction of 71 %. TID is calculated at 0.96, within normal limits. IMPRESSION: 1. Fixed defect involving the anteroseptal wall could represent an area of old infarct. However, as t he defect is larger on rest, attenuation artifact is felt to be more likely. 2. No abnormal reversibility is seen.
--- NOTE | 2023-12-08 13:28 | CA ---
Lexiscan Nuclear Stress Test Report Name: Mamta Tripp Exam Date: 12/08/2023 10:59 Exam Location: [place] Stress Ht (in): 68 Wt (lb): 240 BSA: 2.21 Ordering Phys: Pérez Howard MD Referring Phys: SYLVIA,, Technologist: Adal Jorge Age: 68 Gender: F : 1955 Procedure CPT: Indications: I11.9 HYPERTENSIVE HEART DISEASE WITHOUT HEART ELIDA ICD-10 Codes: Patient History: DIFFICULTY IN BREATHING, PALPITATIONS, HTN, DIABETES, PRIOR STROKE, HYPERCHOLESTEROLEMIA, CURRENT SMOKER 2 PPD X 50 YEARS, PRIOR HEART CATH, COPD Medications: Meds past 24 hrs: Pretest Chest Pain: STRESS TEST Lexiscan Protocol Exercise Duration (min:sec): 02:[address] Depressions (mm): Angina Score: Gomez Score: Resting HR (bpm): 59 Peak HR (bpm): 84 Resting BP (mmHg): 121 / 71 Peak BP (mmHg): 166 / 74 MPHR: 154 Target HR: 131 % MPHR: 55 METS: 1.0 Total Dose: Peak Dose: Atropine: Double Product: 13178 BP Response: Stress Termination: INFUSION COMPLETE Stress Symptoms: DYSPNEA AND NAUSEA Stress Summary: ECG ANALYSIS Resting ECG: Stress ECG: CONCLUSIONS At baseline EKG showed normal sinus rhythm, normal axis, poor R- wave progression, no significant ST or T wave abnormalities. Patient recieved IV infusion of Lexiscan 0.4mg and at peak infusion EKG showed no significant change from baseline. Conclusions: 1. Normal EKG response to Lexiscan infusion 2. Nuclear imaging to be reported separately. Dr. Guillermo Rolle DO (Electronically Signed) Final Date: 08 December 2023 13:27
== END | disposition home or self-care (01) ==
LOC: RADNMMAIN 08:58
PROVIDERS: ATTEND Family Medicine
DX: I11.9 Hypertensive heart disease without heart failure (principal); I20.89 Other forms of angina pectoris; I50.32 Chronic diastolic (congestive) heart failure
CPT/HCPCS: 93017; 78452; A9500